=== PATIENT | female | born 1955 | race Caucasian/White ===

== ENCOUNTER 2017-06-30 22:13 | Emergency (ER) | payer BC ==
[~2017-06-30] VITALS: Ht 167.6 cm; Wt 68.0 kg
[~2017-06-30 22:13] MED LIST: CYMBALTA30 MG PO; FIORINAL CAPSUL1 CA1 PO; HYDROCODONE-AP1 EAC6 PO; IMITREX 25 MG T25 M1 PO; IMITREX 50 MG T50 MG PO; NEURONTIN 300300 M1 PO; PRILOSEC 20 MG20 MG PO
[2017-06-30] MEDS ORDERED: FOSAMAX 70 MG T70 MG (22:28)
[2017-06-30] MEDS ORDERED: AMITRIPTYLINE100 MG (22:28)
[2017-06-30] MEDS ORDERED: ASCORBIC ACID250 MG (22:29)
[2017-06-30] MEDS ORDERED: CELEBREX 200 M200 M1 (22:29)
[2017-06-30] MEDS ORDERED: FLEXERIL (22:30)
[2017-06-30] MEDS ORDERED: BENADRYL25 MG (22:30)
[2017-06-30] MEDS ORDERED: D-MANNOSE1 GM (22:30)
[2017-06-30] MEDS ORDERED: VITAMIN D1000 UNI1 (22:30)
[2017-06-30] MEDS ORDERED: ESTRACE1 TUBE (22:31)
[2017-06-30] MEDS ORDERED: FLUOXETINE HCL40 MG (22:31)
[2017-06-30] MEDS ORDERED: NEXIUM40 MG (22:31)
[2017-06-30] MEDS ORDERED: FLOVENT DISKUS50 MCG (22:32)
[2017-06-30] MEDS ORDERED: GABAPENTIN 100100 MG (22:32)
[2017-06-30] MEDS ORDERED: HYDROXYCHLOROQ200 M1 (22:35)
[2017-06-30] MEDS ORDERED: HYDROCODONE/ACETAMIN (22:35)
[2017-06-30] MEDS ORDERED: ONDANSETRON HCL4 M2 PO (22:36)
[2017-06-30] MEDS ORDERED: RIBOFLAVIN400 MG (22:36)
[2017-06-30] MEDS ORDERED: REQUIP 0.25 M0.25 M1 (22:36)
[2017-07-01] MEDS ORDERED: PREDNISONE50 MG PO (00:10)
[2017-07-01 00:25] VITALS: BP 149/92
== END 2017-07-01 00:26 | disposition home or self-care (01) ==
LOC: M.ERS 22:13
DX: T78.40XA Allergy, unspecified, initial encounter (principal); F32.9 Major depressive disorder, single episode, unspecified; K21.9 Gastro-esophageal reflux disease without esophagitis; M19.90 Unspecified osteoarthritis, unspecified site; E78.00 Pure hypercholesterolemia, unspecified; X58.XXXA Exposure to other specified factors, initial encounter

== ENCOUNTER → 2017-12-08 | Outpatient (CLI) | payer BC ==
[~2017-12-08] MED LIST changes: +AMITRIPTYLINE100 MG; +ASCORBIC ACID250 MG; +BENADRYL25 MG; +CELEBREX 200 M200 M1; +D-MANNOSE1 GM; +ESTRACE1 TUBE; +FLEXERIL; +FLOVENT DISKUS50 MCG; +FLUOXETINE HCL40 MG; +FOSAMAX 70 MG T70 MG; +GABAPENTIN 100100 MG; +HYDROCODONE/ACETAMIN; +HYDROXYCHLOROQ200 M1; +NEXIUM40 MG; +ONDANSETRON HCL4 M2 PO; +PREDNISONE50 MG PO; +REQUIP 0.25 M0.25 M1; +RIBOFLAVIN400 MG; +VITAMIN D1000 UNI1
== END ==
LOC: M.RAD 15:06
DX: S92.152A Displaced avulsion fracture (chip fracture) of left talus, initial encounter for closed fracture (principal); X58.XXXA Exposure to other specified factors, initial encounter; Y93.89 Activity, other specified; Y92.89 Other specified places as the place of occurrence of the external cause; Y99.8 Other external cause status

== ENCOUNTER → 2018-04-10 | Outpatient (CLI) | payer BC | LOC: M.RAD 14:24 | DX: R05 Cough (principal) ==

== ENCOUNTER → 2019-11-23 | Outpatient (CLI) | payer BC | LOC: M.RAD 14:18 | PROVIDERS: ATTEND Family Medicine | DX: M85.88 Other specified disorders of bone density and structure, other site (principal); Z78.0 Asymptomatic menopausal state ==

== ENCOUNTER 2021-05-31 08:24 | Inpatient (IN) | payer MEDICARE ==
[~2021-05-31] VITALS: Ht 167.6 cm; Wt 77.1 kg
[2021-05-31 08:40] VITALS: BP 124/58
[2021-05-31 09:16] LABS: ABSOLUTE BASOPHILS 0.1 thou/uL (0.0-0.2); ABSOLUTE EOSINOPHILS 0.4 thou/uL (0.0-0.7); ABSOLUTE MONOCYTES 0.5 thou/uL (0.0-1.2); BASOPHILS 0.9 %; EOSINOPHILS 6.6 %; HEMATOCRIT 37.9 % (37.0-47.0); HEMOGLOBIN 12.6 gm/dL (12.0-15.0); LYMPHOCYTES 16.5 %; MCH 31.9 pg (26.0-34.0); MCHC 33.1 g/dL (28.0-37.0); MCV 96.4 fL (80.0-100.0); MONOCYTES 8.6 %; MPV 8.2 fl. (7.2-11.1); NUCLEATED RBCS 0 /100WBC; PLATELET COUNT* 215 thou/uL (150-400); POLYS 67.4 %; RBC 3.94 mil/uL (4.20-5.00); RDW-CV 13.5 % (10.5-14.5); WBC 5.9 thou/uL (4.0-11.0)
--- NOTE | 2021-05-31 09:19 | EKG ---
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1955 Requested By: Rubio Bhardwaj Order Number: [id number] MD: Shay Piña Measurements Intervals [place] Rate: 60 P: 68 VA: 168 QRS: 45 QRSD: 109 T: 45 QT: 418 QTc: 418 Interpretive Statements Sinus rhythm Low voltage, precordial leads Compared to ECG 12/01/2007 19:21:39 Low QRS voltage now present Electronically Signed On 05-31-2021 9:19:29 [employer] by Shay Piña [email or web address] <ELECTRONICALLY SIGNED> By: Shay Piña MD, [facility] 05/31/21918 5 5 Shay Piña MD, [facility] /EPI
[2021-05-31 09:38] LABS: URINE BILIRUBIN NEGATIVE (Negative); URINE BLOOD NEGATIVE (Negative); URINE CLARITY CLEAR; URINE COLOR YELLOW; URINE GLUCOSE-RANDOM NEGATIVE (Negative); URINE KETONES NEGATIVE (Negative); URINE NITRITE-REFLEX NEGATIVE (Negative); URINE PROTEIN TRACE (Negative); URINE SPECIFIC GRAVITY 1.025 (1.005-1.030); URINE UROBILINOGEN 0.2 E.U./dl (0.2-1.0)
[2021-05-31 09:40] LABS: ALBUMIN 3.3 g/dL (3.4-5.0); POTASSIUM 4.2 mmol/L (3.5-5.1); TOTAL BILIRUBIN 0.4 mg/dL (<0.1-1.0); TOTAL PROTEIN 6.8 g/dL (6.4-8.2)
[2021-05-31 09:46] LABS: URINE LEUKOCYTES-REFLEX 2+ (Negative)
[2021-05-31 09:47] LABS: CALCIUM 8.5 mg/dL (8.5-10.1); CREATININE 1.1 mg/dL (0.6-1.3)
[2021-05-31 09:48] LABS: BACTERIA-REFLEX 1-9 Few /HPF (None Seen); CASTS None Seen /LPF (None Seen); CRYSTALS None Seen /LPF (None Seen); SQUAMOUS 4-10 Moderate /LPF (0-3); URINE RBC None Seen /HPF (0-2); URINE WBC-REFLEX 6-15 Few /HPF (0-5)
[2021-05-31 14:50] VITALS: BP 114/71
--- NOTE | 2021-05-31 15:05 | NUR ---
ER ADMIT AND PATIENT TO 213 VIA CART TELEPHONE REPORT GIVEN PRIOR TO ARRIVAL PATIENT ORIENTED TO AND CALL LIGHT C/O LOWER BACK PAIN MILD REFUSE MEDICATION AT THIS TIME
[2021-05-31 15:10] VITALS: BP 87/63
[2021-05-31 19:40] VITALS: BP 107/59
[2021-06-01] VITALS (8 sets, daily range): BP systolic 96–141; BP diastolic 61–88
--- NOTE | 2021-06-01 03:47 | NUR ---
PT A&O X 4. ON RA. MEDS GIVEN ORDERED. UP WITH SBA. NO C/O PAIN OR DIZZINESS. PT SLEEPING MOST OF THE NIHGT. CALL LIGHT WITHIN REACH. WILL CONTINUE TO MONITOR.
[2021-06-01 06:06] LABS: GLYCOHEMOGLOBIN (HGB A1C) 5.9 % (4.8-5.6)
--- NOTE | 2021-06-01 09:24 | NUR ---
Pt is admitted to the hospital for Vertigo on 05/31/21. Pt is alert and oriented x3. Pt lives with spouse in a house with no steps to enter and has a chair lift inside the house. Pt was previously indepedent in ADL's and Mobility. No hx of HH/DME/ or SNF. Pt fills her prescriptions at [facility] in [place], and saw her PCP 3 months ago. Pt does not have a DPOA. CM to continue to follow for discharge planning.
[2021-06-01 11:48] LABS: HEMATOCRIT 40.3 % (37.0-47.0); HEMOGLOBIN 13.4 gm/dL (12.0-15.0); MCH 32.2 pg (26.0-34.0); MCHC 33.2 g/dL (28.0-37.0); MPV 8.6 fl. (7.2-11.1); RBC 4.16 mil/uL (4.20-5.00); RDW-CV 13.6 % (10.5-14.5); WBC 4.5 thou/uL (4.0-11.0)
[2021-06-01 11:55] LABS: ALBUMIN 3.4 g/dL (3.4-5.0); ALKALINE PHOSPHATASE 37 U/L (46-116); ANION GAP 6 mmol/L (7-16); BUN 28 mg/dL (7-18); CALCIUM 8.8 mg/dL (8.5-10.1); CHLORIDE 106 mmol/L (98-107); CHOLESTEROL 162 mg/dL (<200); CO2 31 mmol/L (21-32); CREATININE 0.9 mg/dL (0.6-1.3); GLUCOSE 77 mg/dL (70-99); HDL CHOLESTEROL 67 mg/dL (>40); LDL CHOLESTEROL 78 mg/dL (<100); MAGNESIUM 2.3 mg/dL (1.8-2.4); POTASSIUM 4.5 mmol/L (3.5-5.1); SGOT 14 U/L (15-37); SGPT 21 U/L (30-65); SODIUM 143 mmol/L (136-145); TC:HDL 2.4 Ratio (Not establshd); TOTAL BILIRUBIN 0.4 mg/dL (<0.1-1.0); TRIGLYCERIDE 86 mg/dL (<150); VLDL 17 mg/dL (<40)
[2021-06-01 12:00] LABS: SERUM ASSESSMENT Clear
--- NOTE | 2021-06-01 15:39 | 2DMMODE ---
[place] [address] 2 D/M-MODE ECHOCARDIOGRAM Name: PUSHPA VALDEZ Room: [address] IN [place].#: [id number] Admission: 05/31/21 Attend Phys: Marta Fisher, Discharge: Date of : 55 Date of Service: 06/01/21 1539 Report #: [id number] THIS REPORT FOR: cc: Andriy Varner Adam J DO Holkins,Shay Woodruff MD [facility] ~ APPROVED REPORT Study performed: 06/01/2021 11:26:13 EXAM: Comprehensive 2D, Doppler, and color-flow Echocardiogram Patient Location: In-Patient Room #: [facility] Status: routine BSA: 1.87 HR: 65 bpm BP: 125/67 mmHg Rhythm: NSR Other Information Study Quality: Good Indications CVA/TIA Echo Enhancing Agent Indication: Rule out Shunt Agent(s) / Amount(s) Used: Agitated Saline 10 cc 2D Dimensions IVSd: 11.41 (7-11mm) LVOT Diam: 20.39 (18-24mm) LVDd: 40.33 mm PWd: 8.21 (7-11mm) Ascending Ao: 30.88 (22-36mm) LVDs: 22.79 (25-40mm) Aortic Root: 33.85 mm Volumes Left Atrial Volume (Systole) LA ESV Index: 11.30 mL/m2 Aortic Valve AoV Peak Osei.: 0.90 m/s AO Peak Gr.: 3.27 mmHg LVOT Max P.93 mmHg AO Mean Gr.: 1.73 mmHg LVOT Mean P.37 [place] [address] 2 D/M-MODE ECHOCARDIOGRAM Name: PUSHPA VALDEZ Room: [address] IN ..#: [id number] Admission: 05/31/21 Attend Phys: Marta Fisher, Discharge: Date of : 55 Date of Service: 06/01/21 1539 Report #: [id number] LVOT Max V: 0.86 m/s AO V2 VTI: 17.27 cm LVOT Mean V: 0.54 m/s CARMELA (VTI): 3.93 cm2 LVOT V1 VTI: 20.81 cm Mitral Valve E/A Ratio: 0.73 MV Decel. Time: 209.27 ms MV E Max Osei.: 0.57 m/s MV PHT: 60.69 ms MVA (PHT): 3.63 cm2 TDI E/Lateral E': 6.33 E/Medial E': 6.33 Medial E' Osei.: 0.09 m/s Lateral E' Osei.: 0.09 m/s Pulmonary Valve PV Peak Osei.: 0.60 m/s PV Peak Gr.: 1.43 mmHg Left Ventricle The left ventricle is normal size. There is normal LV segmental wall motion. There is normal left ventricular wall thickness. Left ventricular systolic function is normal. The left ventricular ejection fraction is within the normal range. LVEF is 55-60%. Grade I - abnormal relaxation pattern. Right Ventricle The right ventricle is normal size. The right ventricular systolic function is normal. Atria The left atrium size is normal. The interatrial septum is intact with no evidence for an atrial septal defect. The right atrium size is normal. Aortic Valve The aortic valve is normal in structure. No aortic regurgitation is present. There is no aortic valvular stenosis. Mitral Valve The mitral valve is normal in structure. Trace mitral regurgitation. No evidence of mitral valve stenosis. Tricuspid Valve The tricuspid valve is normal in structure. There is no tricuspid [place] [address] 2 D/M-MODE ECHOCARDIOGRAM Name: PUSHPA VALDEZ Room: [address] IN [facility]#: [id number] Admission: 05/31/21 Attend Phys: Marta Fisher, Discharge: Date of : 55 Date of Service: 06/01/21 1539 Report #: [id number] Pulmonic Valve The pulmonary valve is normal in structure. There is no pulmonic valvular regurgitation. Great Vessels The aortic root is normal in size. IVC is normal in size and collapses >50% with inspiration. Pericardium There is no pericardial effusion. <Conclusion> The left ventricle is normal size. There is normal left ventricular wall thickness. Left ventricular systolic function is normal. The left ventricular ejection fraction is within the normal range. LVEF is 55-60%. Grade I - abnormal relaxation pattern. The right ventricle is normal size. The left atrium size is normal. The aortic valve is normal in structure. The mitral valve is normal in structure. Trace mitral regurgitation. The tricuspid valve is normal in structure. IVC is normal in size and collapses >50% with inspiration. There is no pericardial effusion. There is normal LV segmental wall motion. The interatrial septum is intact with no evidence for an atrial septal defect. <ELECTRONICALLY SIGNED> By: Shay Piña MD, FACC 06/01/21 1539 1539 1539 Shay Piña MD, FACC /INF
[2021-06-02] VITALS: BP 101/48
[2021-06-02 04:00] VITALS: BP 116/52
--- NOTE | 2021-06-02 05:25 | NUR ---
ASSUMED CARE OF PT AFTER REPORT AT 1930. PT A&OX4. VSS. PHYSICAL ASSESSMENT COMPLETED AND CHARTED. PT ON RA. PT TRACING SR ON TELE. NIH CHARTED. ORTHOSTATIC BP OBTAINED & CHARTED. PT COMPLAINED OF CONTSTANT LOWER BACK PAIN-MED GIVEN PER MAR. CALL LIGHT WITHIN REACH.
[2021-06-02 05:59] LABS: HEMATOCRIT 39.1 % (37.0-47.0); HEMOGLOBIN 12.8 gm/dL (12.0-15.0); MCH 32.4 pg (26.0-34.0); MCHC 32.8 g/dL (28.0-37.0); MPV 8.9 fl. (7.2-11.1); RBC 3.95 mil/uL (4.20-5.00); RDW-CV 13.9 % (10.5-14.5); WBC 5.2 thou/uL (4.0-11.0)
[2021-06-02 06:43] LABS: ALBUMIN 3.4 g/dL (3.4-5.0); CALCIUM 8.5 mg/dL (8.5-10.1); CREATININE 0.9 mg/dL (0.6-1.3); MAGNESIUM 2.2 mg/dL (1.8-2.4); POTASSIUM 4.8 mmol/L (3.5-5.1); TOTAL BILIRUBIN 0.5 mg/dL (<0.1-1.0); TOTAL PROTEIN 6.4 g/dL (6.4-8.2)
[2021-06-02 08:00] VITALS: BP 134/78
[2021-06-02] MEDS ORDERED: DOXYCYCLINE 10100 MG PO (10:46)
[2021-06-02] MEDS ORDERED: CEFDINIR300 MG PO (10:46)
[2021-06-02 12:00] VITALS: BP 135/76
[2021-06-02 14:23] VITALS: BP 134/78
--- NOTE | 2021-06-06 13:41 | CON ---
[address] [address] CONSULTATION Name: GIANA VALDEZSA Lucio Room: [address] IN M.R.#: [id number] Admission: 05/31/21 Attend Phys: Marta Fisher MD Discharge: 06/02/21 Date of : 55 Report #: [id number] THIS REPORT FOR: cc: Andriy Varner Adam J DO Khosla, Parveen K. MD ~ DATE OF CONSULTATION: 05/31/2021 HISTORY OF PRESENT ILLNESS: A 65-year-old female patient who was evaluated by me for any neurological etiology for the patient's dizziness. She said that she had dizziness this morning. She felt lightheaded and she passed out. She did not have any tonic-clonic activity. She came to Emergency Room. They did a CT angiogram of the head and neck there. That does not appear to be showing any definite abnormality. She apparently also had an MRI, but we cannot find that. REVIEW OF SYSTEMS: Pretty extensive. Her physicians are at [facility]. She had extensive spine problem and she follows up with the pain management doctor. She had an ablation there and she was scheduled for another MRI of the cervical spine there. She said she has a sarcoidosis and she has a restless leg syndrome. She says she does not have any depression, but she takes depression medication because of migraine. She goes to [facility] for the management of the migraine and neurological problem. At [facility], she sees a neurosurgeon and an orthopedic surgeon for the back in addition to the pain management. This was her relevant 14-point review of system. PAST MEDICAL HISTORY: Positive for migraine. FAMILY HISTORY: Unremarkable. SOCIAL HISTORY: She does not smoke or drink alcohol. PHYSICAL EXAMINATION: Indicate she is alert. She is responsive. She can follow simple commands. Her speech looks intact. Cranial nerve examination 2-12 to me looks unremarkable. I could not look at the patient's fundus. To me, her strength looks symmetrical and reflexes are somewhat diminished, but position sense is intact and tone is also unremarkable. She is not ataxic. She has no meningeal sign. She is a pretty well-built individual. Her hearing and vision is adequate. No thyroid mass, no carotid bruit, no edema. Last blood pressure was 87/63, respirations 17, pulse is 59, temperature is 98.0. IMPRESSION: 1. It is unlikely that there is any neurological etiology for the patient's symptoms. We will try to look at the patient's MRI to see if there is any etiology there. I will also do an EEG to complete the workup. 2. I will suggest looking for systemic etiology. Her blood pressure is low and [facility] [address] [place] [address] CONSULTATION Name: JOSÉ MIGUELPUSHPA Room: [address] IN M.R.#: [id number] Admission: 05/31/21 Attend Phys: Marta Fisher MD Discharge: 06/02/21 Date of : 55 Report #: [id number] that may be contributing to the patient's symptoms and she may need some other systemic workup to look for any systemic etiology, which all deferred to the hospitalist. I discussed all of it with the patient and she is agreeable with this plan. I will ask Teleneurology to follow up this patient tomorrow and look at the MRI to see if that shows any abnormality and as mentioned above, suggest a systemic workup. I did tell the patient not to drive until she is released to drive by her physicians at [facility] where she should follow up. Thank you very much for this referral. <ELECTRONICALLY SIGNED> By: Darion Nick MD 06/06/21 1341 1854 1941Pakira Nick MD /nt
== END 2021-06-02 15:00 | disposition home or self-care (01) | DRG 179 ==
LOC: M.ERS 08:24 → M.2W 11:25 → M.TBA-ER 11:25 → M.2W 15:30
PROVIDERS: Emergency Medicine Emergency Medical Services; ADMIT Internal Medicine; ATTEND Internal Medicine
DX: J15.6 Pneumonia due to other Gram-negative bacteria (principal); I95.9 Hypotension, unspecified; F32.9 Major depressive disorder, single episode, unspecified; K21.9 Gastro-esophageal reflux disease without esophagitis; E78.00 Pure hypercholesterolemia, unspecified; G25.81 Restless legs syndrome; M19.90 Unspecified osteoarthritis, unspecified site; G43.909 Migraine, unspecified, not intractable, without status migrainosus; E78.5 Hyperlipidemia, unspecified; D86.9 Sarcoidosis, unspecified; Z20.822 Contact with and (suspected) exposure to COVID-19